=== PATIENT | male | born 1995 | race Caucasian/White ===

== ENCOUNTER → 2020-05-21 14:42 | Outpatient (BNVA) | payer SELFPAY | PROVIDERS: Family Provider Nurse Practitioner Family; PCP Nurse Practitioner Family; Visit Provider Dermatology | DX: L21.9 Seborrheic dermatitis, unspecified (principal); L70.0 Acne vulgaris; L72.0 Epidermal cyst | CPT/HCPCS: 99202 ==

== ENCOUNTER → 2020-06-06 10:18 | Outpatient (BNVA) | payer SELFPAY | PROVIDERS: Family Provider Nurse Practitioner Family; PCP Nurse Practitioner Family; Visit Provider Dermatology | DX: L72.0 Epidermal cyst (principal); D48.9 Neoplasm of uncertain behavior, unspecified | CPT/HCPCS: 11444; 12052; 88304; 88305 ==

== ENCOUNTER → 2020-06-20 11:21 | Outpatient (BNVA) | payer SELFPAY | PROVIDERS: Family Provider Nurse Practitioner Family; PCP Nurse Practitioner Family; Visit Provider Dermatology | DX: Z48.02 Encounter for removal of sutures (principal) | CPT/HCPCS: 99024 ==